=== PATIENT | male | born 2000 | race Caucasian/White ===

== ENCOUNTER 2024-02-25 21:01 | Emergency (ER) | payer MEDICAID ==
[~2024-02-25] VITALS: Ht 180.3 cm; Wt 71.9 kg
[2024-02-25] MEDS: LIDOcaine 1% 30ml preserv. free vial IJ STA (22:25)
[2024-02-25] MEDS ORDERED: tetanus & diphtheria toxoid (Td) vaccine 0.5ml IMVAC ONE (22:30)
[2024-02-25] MEDS ORDERED: AMOX-580 PO (22:54)
[2024-02-25] MEDS ORDERED: BACI1PAC7 TP (22:54)
[2024-02-25] MEDS: acetaminophen 325mg tablet PO ONE (23:06)
[2024-02-25] MEDS: amox tr/potassium clavulanate 875/125mg TAB PO ONE (23:07)
[2024-02-25] MEDS: TETanus/Pertussis (Acell)/Diphther VAC/PF (Tdap-Adult) 0.5ml syringe IMVAC ONE (23:08)
[2024-02-25 23:30] VITALS: BP 126/89; PULSE 98; RESP 15; TEMP 98.6; O2SAT 100
== END 2024-02-25 23:35 | disposition home or self-care (01) ==
LOC: ER 21:02
DX: S01.551A Open bite of lip, initial encounter (principal); W54.0XXA Bitten by dog, initial encounter
CPT/HCPCS: 40650; 90471; 90715; 99284

== ENCOUNTER 2024-06-10 13:54 | Emergency (ER) | payer MEDICAID ==
[~2024-06-10] VITALS: Ht 180.3 cm; Wt 89.1 kg
[2024-06-10 13:56] VITALS: TEMP 98
[2024-06-10] MEDS ORDERED: AMOX-117 PO (15:05)
--- NOTE | 2024-06-10 15:05 | Physician Documentation ---
History of Present Illness ~ Chief Complaint: Bite-animal Stated Complaint: FINGER LAC Time Seen by MD: 15:01 HPI This is a pleasant 24-year-old gentleman who presents for evaluation of dog bite to his right hand. His own dog, fully vaccinated. Reports an immediate onset o f sharp nonradiating pain. Bleeding is controlled. The particular palliating or aggravating factors. Did not attempt to treat it. This never happened in the past. States unprovoked bite. He is right-handed. Denies any other injury. No concern for tobacco, alcohol or illicit substances use Tetanus within 5 years?: No Medication Reconciliation Allergies: Coded Allergies: No Known Allergies (Unverified , 02/25/24) Scheduled Amox Tr/Potassium Clavulanate (Augmentin 875-125 Tablet), 1 TAB PO Q12H Review of Systems ROS 10 point review of systems was performed and unless noted above in HPI is negative for acute process/complaint. Physical Exam Vital Signs: Temperature: 98.0, Heart Rate: 90, Respiratory Rate: 16, BP: 90 /60, Pulse Oximetry: 100, Weight: 89.100 Oxygen Flow Rate: 0 Physical Exam Physical examination: GENERAL: Awake, alert, oriented, GCS 15, no apparent distress, non-toxic appearing, answers questions, follows commands appropriately. HEENT: Atraumatic, normocephalic, pupils equal, extraocular muscles intact Active gross movements, sclerae anicteric, mucus membranes moist, no stridor. NECK: Midline, no JVD CARDIOVASCULAR: Good skin perfusion without evidence of pallor, mottling. PULMONARY: Nonlabored, symmetric chest rise, no audible wheezing, no accessory muscle use, no respiratory distress, speaking in full sentences. GASTROINTESTINAL: Not distended. NEUROLOGIC: Lucid with normal mental status. Normal facial symmetry. Moves all extremities symmetrically and with purpose. No truncal ataxia. Speech is fluid without evidence of dysarthria or aphasia, no focal deficits appreciated. EXTREMITIES: Acute deformities Skin: warm, dry PSYCHIATRIC: Normal affect, normal insight, normal concentration. Focused exam: [] There are two 2 cm superficial lacerations to the thenar eminence of the right hand. No active bleeding. Neurovascularly intact distally. Progress Results/Orders Results/Orders Orders - MIGDALIA MATIAS DO * Hand Irrigation Orders * (06/10/24 15:02) * Measure Wound & Document In (06/10/24 15:02) * Additional Wound Care Orders (06/10/24 15:02) Vital Signs 06/10/24 13:56 Temp 98.0 Pulse 90 Resp 16 B/P (MAP) 90/60 Pulse Ox 100 O2 Flow Rate 0 Medical Decision Making Findings Facility Status: ED Holds, RME process The plan was discussed with the patient, who demonstrates clear understanding of the plan and is in agreement with the plan unless otherwise noted in the chart. All questions have been answered, all concerns were addressed unless otherwise documented. I was available throughout their ED stay for frequent reassessment and questions. Differential Diagnoses (considered and possible or likely): [Dog bite to hand, acute traumatic pain, hand laceration, hand infection, clinically not consistent with any retained teeth] ??Differential Diagnoses (considered and unlikely, not requiring evaluation currently): [. Unlikely to represent rabies given the fact that the dog is vaccinated] MDM Data Please see [facility] for the following: Independent Historians and external Records Review. Historian: [Patient] Independent Historians: ?[Non] Medication Management: [Reviewed medication list] Social History and determinants: [Reviewed] Please see the body of the note for the following: Any independent interpretations of ECG, imaging studies. All vitals signs/haemodynamics, ordered tests were independently reviewed and interpreted by myself. Nursing triage complaint and vitals reviewed, additional nursing notes were reviewed as available and I agree unless otherwise noted or documented in contradiction in the chart Vital Signs: Independently reviewed Labs: Independently interpreted Imaging: Independently interpreted Old Medical Records: Independently reviewed, see [facility] for relevant summary and information Pulse Oximetry: [100%] interpreted as [normal on room air] by me Additionally notably showing: [Hemodynamically stable] Tests considered but not ordered include: [Hematologic workup and imaging has been considered but does not appear to be necessary given clinical nature of diagnosis. very superficial lacerations, without evidence of retained teeth] Social Determinants of Health Impact: Patient was evaluated in [facility], or [facility] [place] to healthcare due to below par ratio of patient to medical providers. [] Comorbid Conditions Impacting Present Evaluation and Care/Treatment: [None reported by the patient] Management Discussions with other Healthcare Providers: [None] Treatment and Disposition Medication Management (Given or considered): [Pain management and initial dose of antibiotics has been considered]. See EMR for details Consideration for Hospitalization/Escalation/Deescalation of Care: Admission for observation has been considered, [however the patient is able to tolerate p.o., their symptoms are controlled, they are able to rely on oral medications, and their chief complaint/diagnosis can be managed on outpatient basis.] ?ED Course:?[No clinical deterioration] ?Shared decision making:?[Patient is hemodynamically stable for discharge home with follow with their primary care provider. [ ] Specific and cautious return precautions provided and discussed with full understanding. Any incidental findings were also discussed and follow up recommendations given. [] All questions answered. Patient/family were able to verbalize back return precautions. Patient/family agree to plan. Copies of imaging and laboratory studies were provided.] Code status:?FULL Please see the full Electronic Medical Record for full details of nursing documentation, medications list, other records of complete past medical history and conditions, vital signs, laboratory studies, and any radiologic study interpretations by radiologists. Portions of this note were completed using [employer] dictation software and as a result there may exist minor errors in spelling. I have reviewed elements of past family and social history and agree as included in note. Departure Disposition: HOME / SELF CARE / HOMELESS Impression: Primary Impression: Dog bite Additional Impressions: Hand laceration Acute traumatic pain Condition: Improved Discharge Instructions: Animal Bite, Adult Referrals: NO PRIMARY CARE PROVIDER (PCP) Prescriptions Amox Tr/Potassium Clavulanate (Augmentin 875-125 Tablet) 1 Each Tablet 1 TAB PO Q12H for 10 Days, #20 TAB Prov: MIGDALIA MATIAS DO 06/10/24 Education Educated: Patient Educated regarding: diagnosis, treatment, prognosis, need for follow up Signature Scribe Signature: No scribe Attestation: This note accurately reflects clinical decisions, work performed by myself, DO POLLY Moya NICHOLAS M DO June 10, 2024 15:05
[2024-06-10 15:50] VITALS: BP 100/60; PULSE 90; RESP 16; O2SAT 98
== END 2024-06-10 15:56 | disposition home or self-care (01) ==
LOC: ER 13:55
DX: S61.411A Laceration without foreign body of right hand, initial encounter (principal); W54.0XXA Bitten by dog, initial encounter; Y93.89 Activity, other specified; Y92.89 Other specified places as the place of occurrence of the external cause; Y99.8 Other external cause status
CPT/HCPCS: 99283; J7030; A6449